=== PATIENT | female | born 1960 | race Caucasian/White ===

== ENCOUNTER 2020-05-11 10:45 | Inpatient (IN) | payer OTHER ==
[~2020-05-11] VITALS: Ht 165.1 cm; Wt 95.3 kg
[2020-05-29] MEDS ORDERED: OMEPRAZOLE 20 M20 M1 PO (11:12)
[2020-05-29] MEDS ORDERED: BUPROPION XL300 MG PO (11:13)
[2020-05-29] MEDS ORDERED: OXYBUTYNIN CHLO15 MG PO (11:13)
[2020-05-29] MEDS ORDERED: LEVO-T75 MCG PO (11:14)
[2020-05-29] MEDS ORDERED: TIROSINT50 MCG PO (11:14)
[2020-05-29] MEDS ORDERED: ASA81BEC PO (11:16)
[2020-05-29] MEDS ORDERED: DESVENLAFAXINE100 M3 PO (11:16)
[2020-05-29] MEDS ORDERED: CRANBERRY500 M3 PO (11:17)
[2020-05-29] MEDS ORDERED: TESSALON PERLE100 M1 PO (11:17)
[2020-05-29] MEDS ORDERED: THERATRUM COMP1 EAC2 PO (11:18)
[2020-05-29] MEDS ORDERED: VITAMIN C1000 MG PO (11:18)
[2020-05-29] MEDS ORDERED: CYCLOBENZAPRINE5 MG PO (11:19)
[2020-05-29] MEDS ORDERED: TEMAZEPAM30 MG PO (11:19)
[2020-05-29] MEDS ORDERED: FOSAMAX 70 MG T70 MG PO (11:19)
[2020-05-29] MEDS ORDERED: MELOXICAM15 MG PO (11:20)
[2020-05-29] MEDS ORDERED: MAXALT10 MG PO (11:21)
[2020-05-29] MEDS ORDERED: TYLENOL EXTRA500 MG PO (11:21)
[2020-05-29] MEDS ORDERED: TRAMADOL 50 MG50 MG PO (11:21)
[2020-05-29] MEDS ORDERED: VITAMIN D350 MCG PO (11:21)
[2020-05-29] MEDS ORDERED: VITAMIN B-122000 MC1 PO (11:22)
[2020-05-29 11:56] LABS: ABSOLUTE NEUTROPHILS 2.5 thou/uL (1.4-8.2); BASOPHILS 0.8 % (0.0-2.0); EOSINOPHILS 5.2 % (0.0-3.0); HEMATOCRIT 32.1 % (37.0-47.0); HEMOGLOBIN 10.8 gm/dL (12.0-15.0); LYMPHOCYTES 30.2 % (24.0-44.0); MCH 29.2 pg (26.0-34.0); MCHC 33.6 g/dL (28.0-37.0); MCV 86.9 fL (80.0-100.0); PLATELET COUNT 331 thou/uL (150-400); POLYS 51.8 % (36.0-66.0); RDW 15.7 % (10.5-14.5); WBC 4.7 thou/uL (4.0-11.0)
[2020-05-29 12:04] LABS: URINE BILIRUBIN NEGATIVE (Negative); URINE BLOOD NEGATIVE (Negative); URINE CLARITY CLEAR; URINE COLOR YELLOW; URINE GLUCOSE-RANDOM* NEGATIVE (Negative); URINE KETONES NEGATIVE (Negative); URINE NITRITE-REFLEX NEGATIVE (Negative); URINE PROTEIN (DIPSTICK) NEGATIVE (Negative); URINE SPECIFIC GRAVITY 1.025 (1.005-1.035); URINE UROBILINOGEN 0.2 E.U./dl (0.2-1.0)
[2020-05-29 12:06] LABS: URINE LEUKOCYTES-REFLEX 1+ (Negative)
[2020-05-29 12:08] LABS: APTT 23.5 Seconds (24.5-32.8); PROTIME 9.7 Seconds (9.3-11.4)
[2020-05-29 12:09] LABS: ALBUMIN 3.6 g/dL (3.4-5.0); CALCIUM 8.7 mg/dL (8.5-10.1); CREATININE 0.8 mg/dL (0.6-1.0); POTASSIUM 4.5 mmol/L (3.5-5.1); TOTAL BILIRUBIN 0.4 mg/dL (0.2-1.0); TOTAL PROTEIN 6.4 g/dL (6.4-8.2)
[2020-05-29 12:29] LABS: CASTS None Seen /LPF (None Seen); SQUAMOUS >10 Many /LPF (0-3)
[2020-05-29 12:30] LABS: BACTERIA-REFLEX >30 Many /HPF (None Seen); CRYSTALS None Seen /LPF (None Seen); URINE WBC-REFLEX 6-15 Few /HPF (0-5)
--- NOTE | 2020-05-29 12:40 | EKG ---
[facility] [place] [address] ELECTROCARDIOGRAM REPORT Name: BERTRAND LEVY Room #: PRE IN ..#: [id number] Admission: Attend Phys: Deshaun Zuleta MD Discharge: Date of : 56 Report #: [id number] THIS REPORT FOR: cc: WILSON MALLOY Physician not on staff Braulio Hurtado MD ~ THIS REPORT FOR: //name// [facility] Test Date: 2020-05-29 Test Time: 11:46:21 Pat Name: BERTRAND LEVY Department: Room: Gender: F Cone Classifier Tender: Solomon IVORY : 1960 Requested By: Deshaun Zuleta Order Number: [id number] MD: Braulio Hurtado Measurements Intervals [place] Rate: 81 P: 56 DC: 156 QRS: 0 QRSD: 93 T: 19 QT: 388 QTc: 451 Interpretive Statements Sinus rhythm No previous ECG available for comparison Electronically Signed On 05-29-2020 12:39:47 [employer] by Braulio Hurtado [email or web address] <ELECTRONICALLY SIGNED> By: Braulio Hurtado MD 05/29/20 1239 D: 11/1145 1146 Braulio Hurtado MD /UZMA
[2020-06-01 06:50] VITALS: BP 150/85
[2020-06-01 16:10] VITALS: BP 124/74
[2020-06-01 16:44] VITALS: BP 120/75
[2020-06-01 17:52] VITALS: BP 129/74
--- NOTE | 2020-06-01 18:18 | NUR ---
PATIENT ADMITTED FROM OR WITH LUMBAR DECOMPRESSION WITH L4-L5 FUSION. PATIENT HAS AQUACEL DRESSING WITH 4X4 MEDIPORE TAPE IN PLACE WITH HEMOVAC, KNEE HIGH ASHLEY HOSE, SCD'S IN PLACE. PATIENT IS ON BEDREST DUE TO LUMBAR FUSION. REMANUFACTURING TECHNICIAN PUMP IN PLACE DILAUDID. C/O ITCHING. PATIENT DENIES NAUSEA, WANTS REGULAR DIET ORDERED FOR DINNER. PATIENT ALERT AND ORIENTED X 4, PATIENT UNSURE OF [place]. VISITOR AT THIS TIME. CAP MONITOR IN PLACE. O2 AT 2 LITERS/NC. ADMISSION COMPLETED, REPORT GIVEN TO SOLOMON/RN.
[2020-06-01 19:34] VITALS: BP 112/72
[2020-06-02 03:34] VITALS: BP 130/72
[2020-06-02 03:41] LABS: HEMATOCRIT 31.1 % (37.0-47.0); HEMOGLOBIN 10.3 gm/dL (12.0-15.0); MCH 29.1 pg (26.0-34.0); MCHC 33.1 g/dL (28.0-37.0); MCV 87.8 fL (80.0-100.0); PLATELET COUNT 331 thou/uL (150-400); RBC 3.54 mil/uL (4.20-5.00); RDW 15.8 % (10.5-14.5); WBC 9.7 thou/uL (4.0-11.0)
[2020-06-02 04:06] LABS: CALCIUM 8.4 mg/dL (8.5-10.1); CREATININE 0.9 mg/dL (0.6-1.0); MAGNESIUM 1.9 mg/dL (1.8-2.4); POTASSIUM 5.2 mmol/L (3.5-5.1)
[2020-06-02 04:41] LABS: FOLIC ACID 21.1 ng/mL (8.6-58.9)
--- NOTE | 2020-06-02 04:44 | NUR ---
ASSESSMENT COMPLETED.PT HAS A SNELL WITH GOOD U/O. BEEN ON THE DIULADID TEACHER VOCATIONAL TRAINING, RATING PAIN IN THE RANGE OF 5-7. CAPNO IN PLACE. PT ALSO C/O ITCHING, GIVEN BENADRYL AND ATARAX GIVEN WITH RELIEF.AFEBRILE. HEMOVAC INTACT. WILL CONTINUE WITH POC TILL EOS.
[2020-06-02 08:05] VITALS: BP 101/69
--- NOTE | 2020-06-02 08:20 | NUR ---
CM RECEIVED A CALL FROM PTS WORK COMP MAJOR GIFTS DIRECTOR HANRUSTY BORJAEWS [phone] WHO REPORTS SHE CAN HELP ASSIST WITH ANY NEEDS PT MAY HAVE. HER FAX FOR CLINICAL IS [phone]. CM NOTIFIED UR RN OF THIS INFORMATION WELL. DANIAL WILL MEET WITH PATIENT THIS AM.
[2020-06-02 09:12] LABS: ABSOLUTE NEUTROPHILS 7.6 thou/uL (1.4-8.2); PLATELET ESTIMATE NORMAL
[2020-06-02] MEDS ORDERED: COLACE 100 MG100 MG PO (10:49)
[2020-06-02] MEDS ORDERED: MIRALAX17 GM PO (10:49)
[2020-06-02] MEDS ORDERED: ROBAXIN 750 MG750 MG PO (10:49)
[2020-06-02] MEDS ORDERED: NORCO 5-325 TA1 EAC2 PO (10:49)
[2020-06-02] MEDS ORDERED: BENADRYL ALLERG25 MG PO (10:49)
[2020-06-02] MEDS ORDERED: CIPRO500 MG PO (10:49)
--- NOTE | 2020-06-02 10:51 | NUR ---
PT CARE ASSUMED AT 0700. A&Ox4. AWAITING PT/OT EVAL TO DETERMINE DISCHARGE. IV PATENT WITH NO REDNESS OR EDEMA, SALINE LOCKED. AQUACELL DRESSING DRY AND INTACH. SNELL REMOVED AFTER PT EVALUATION. HEMOVAC IN PLACE. PT HAD A MILD PANIC ATTACK WHILE WAS IN THE ROOM WITH PT. VITALS ALL STABLE. UP WITH PT TO THE RECLINER. TEDS/SCD'S IN PLACE. IS ENCOURAGED. PT COMPLAINING OF THROAT BEING SOAR. AWARE. NO NEW ORDERS. FALL PROTOCOL IN PLACE. PT COMPLAINING OF GENERALIZED ITCHING. SWITCHED PAIN MEDICATION FROM OXYCODONE TO HYDROCODONE. WILL CONTINUE TO MONITOR.
--- NOTE | 2020-06-02 14:42 | NUR ---
ON-GOING ASSESSMENT: CM REVIEWED CHART AND SPOKE WITH ATTENDING. PT REPORTS SHE IS STILL HAVING ALOT OF PAIN. PT LIVES IN A HOME ALONE. PT DID WELL WITH PHYSICAL THERAPY AND THEY ARE RECOMMENDING HOME VS HOME WITH HH. CM DISCUSSED WITH PATIENT BUT SHE REPORTS SHE IS NOT WANTING HOME HEALTH AT DISCHARGE AND REPORTS SHE WANTS TO DO OUTPATIENT THERAPY. PT STATES SHE IS NOT AGREEABLE FOR HH AND STATES SHE HAS FRIENDS THAT WILL BE ABLE TO TAKE HER TO OUTPATIENT EVENTUALLY. CM HAS BEEN UPDATING PTS BRIDGE IRONWORKER HELPER HAN THROUGH WORK COMP [phone] ON PLAN. OT ALSO SPOKE WITH CM WHO REPORTS THEY DO NOT FEEL PT IS STABLE FOR DISCHARGE THIS DAY AND ARE RECOMMENDING SOME EQUIPMENT AT DISCHARGE. PTS BRIDGE IRONWORKER HELPER HAN THROUGH WORK COMP STATES SHE CAN HELP COORDINATE THAT AND JUST NEEDS ORDER. CM FAXED HER THE ORDER TO OUTPATIENT PT,RIGID SOCK AIDE, LONG HANDLED SPONGE, SHOWER CHAIR AND SHE REPORTS SHE WILL WORK ON GETTING IT APPROVED AND UPDATE PT. PT HAS [employer]. PT REPORTS HER MOTHER IS CURRENTLY STAYING AT HER HOME AND SHE HAS FRIENDS THAT CAN ASSIST HER. PLANS ARE FOR PATIENT TO DISCHARGE HOME ONCE MEDICALLY STABLE.
[2020-06-02 16:09] VITALS: BP 110/62
[2020-06-02 20:15] VITALS: BP 128/73
[2020-06-03 02:40] VITALS: BP 131/76
--- NOTE | 2020-06-03 03:23 | NUR ---
ASSUMED PT CARE AT SHIFT CHANGE. PT IS A&OX4. PT IS ON ROOM AIR. PT TAKES MEDS WHOLE. PT IS A SBA TO THE RR. PT COMPLAINS OF PAIN. WHEN ADMINISTERING HYDROCODONE PT COMPLAINS OF ITCHING. BENADRYL WAS ADMINISTERED. PT CALLS OUT APPR. FALL BUNDLE IN PLACE. PT HAS AQUACELL DRESSING ON HER BACK - C/D/I. HEMOVAC EMPTIED AT 2315. 75 CC'S OF DRAINAIGE. PT IS A SBA WITH A WALKER. WILL CONTINUE TO MONITOR.
[2020-06-03 05:44] LABS: HEMATOCRIT 30.1 % (37.0-47.0); HEMOGLOBIN 9.8 gm/dL (12.0-15.0); MCH 28.8 pg (26.0-34.0); MCHC 32.6 g/dL (28.0-37.0); MCV 88.4 fL (80.0-100.0); PLATELET COUNT 289 thou/uL (150-400); WBC 8.9 thou/uL (4.0-11.0)
[2020-06-03 06:07] LABS: CALCIUM 8.5 mg/dL (8.5-10.1); CREATININE 0.9 mg/dL (0.6-1.0); POTASSIUM 4.7 mmol/L (3.5-5.1)
[2020-06-03 07:57] VITALS: BP 122/69
--- NOTE | 2020-06-03 10:01 | NUR ---
Assumed care of pt. at 0700. Pt. had a fever of 100.4 when vitals were taken. Reviewed previous vitals and noticed a fever had been present for the previous two vital sets as well. None of this was brought up in handoff report. Acetaminophen given. Temperature reassesed 35 minutes later and was still 100.1.
[2020-06-03 10:31] LABS: ABSOLUTE NEUTROPHILS 6.4 thou/uL (1.4-8.2)
[2020-06-03 11:28] LABS: URINE BILIRUBIN NEGATIVE (Negative); URINE BLOOD NEGATIVE (Negative); URINE CLARITY CLEAR; URINE COLOR YELLOW; URINE GLUCOSE-RANDOM* NEGATIVE (Negative); URINE KETONES NEGATIVE (Negative); URINE LEUKOCYTES-REFLEX NEGATIVE (Negative); URINE NITRITE-REFLEX NEGATIVE (Negative); URINE PROTEIN (DIPSTICK) NEGATIVE (Negative); URINE SPECIFIC GRAVITY <= 1.005 (1.005-1.035); URINE UROBILINOGEN 0.2 E.U./dl (0.2-1.0)
[2020-06-03 15:57] VITALS: BP 124/69
[2020-06-03 19:54] VITALS: BP 125/57
--- NOTE | 2020-06-04 00:48 | NUR ---
ASSUMED PT CARE AT 1915. PT IS A&OX4. PT HAS IV THAT IS PATENT IN HER LEFT FOREARM. PT GETS UP WITH THE WALKER STANDBY ASSIST TO THE RESTROOM. PT RUNNING A TEMP OF 99.3. I RE CHECKED AND HER TEMP WAS 99.5. I ADMINISTERED TYLENOL. WILL CONTINUE TO MONITOR. PT COMPLAINS OF PAIN IN HER MID LOWER BACK. PT COMPLAINS OF ITCHING WHEN SHE TAKES HER PAIN MEDICATION SO I ADMINISTER HYDROXYZINE WITH HER PAIN MEDICATION. FALL PRECAUTIONS IN PLACE. HOURLY ROUNDS.
--- NOTE | 2020-06-04 03:57 | NUR ---
THE RN OVERSEEING PATIENTS CARE, I AGREE WITH THE ASSESSMENT AND NOTES BY THE ASSISTANT INVENTORY MANAGER ON THIS PATIENT.
[2020-06-04 05:24] LABS: HEMATOCRIT 32.7 % (37.0-47.0); HEMOGLOBIN 10.7 gm/dL (12.0-15.0); MCHC 32.7 g/dL (28.0-37.0); MCV 88.7 fL (80.0-100.0); PLATELET COUNT 321 thou/uL (150-400); RBC 3.68 mil/uL (4.20-5.00); RDW 15.8 % (10.5-14.5); WBC 8.7 thou/uL (4.0-11.0)
[2020-06-04 05:37] LABS: CALCIUM 8.9 mg/dL (8.5-10.1); CREATININE 0.8 mg/dL (0.6-1.0); POTASSIUM 3.9 mmol/L (3.5-5.1)
[2020-06-04 07:27] VITALS: BP 123/74
--- NOTE | 2020-06-04 10:54 | O ---
[facility] Shannan Monreal [facility] [place] [address] OPERATIVE REPORT Name: BERTRAND LEVY I Room #: 443-P ADM IN M.R.#: [id number] Admission: 06/01/20 Attend Phys: Brenden Castillo MD Discharge: Date of : 56 Report #: [id number] THIS REPORT FOR: cc: WILSON MALLOY Physician not on staff Deshaun Zuleta MD ~ CC: Brenden MALLOY Physician staff DATE OF SERVICE: 06/01/2020 PREPROCEDURAL DIAGNOSES: L3-L4 right lateral recess stenosis with radiculopathy, moderate to severe spinal stenosis L4-L5 with spondylolisthesis and instability, low back pain. POSTPROCEDURAL DIAGNOSES: L3-L4 right lateral recess stenosis with radiculopathy, moderate to severe spinal stenosis L4-L5 with spondylolisthesis and instability, low back pain. PROCEDURE: Posterior instrumentation L4-L5, posterolateral fusion L4-L5, TLIF L4-L5, insertion of interbody cage prosthesis L4-L5, bilateral laminectomy with partial facetectomy and neural foraminotomy of L4, bilateral laminectomy with partial facetectomy and neural foraminotomy L5, right laminectomy, partial facetectomy and neural foraminotomy L3-L4 for spinal stenosis far in excess that necessary for cage placement. Local bone graft harvest. Synthetic bone, allograft bone and fluoroscopy. SURGEON: Deshaun Zuleta MD. GAMEPLAY PROGRAMMER SURGEON: Reba Riojas. ANESTHESIA: General via endotracheal tube. INDICATIONS: The patient has had intractable back and bilateral leg pain and radicular symptoms. She has proved refractory to multimodality conservative management. She has requested we proceed with surgery, understanding the pathology to be an unstable spondylolisthesis at the L4-L5 level associated with at least moderate spinal stenosis and severe lateral recess stenosis. She also has neural foraminal and lateral recess stenosis at the L3-L4 level on the right. The patient understands the purpose of the surgery. She understands the risks of the surgery to be , DVT, pulmonary embolism, paraplegia, loss of bowel and bladder function, loss of sexual function, possibility of bleeding, bleeding requiring transfusion, transfusion attendant risks of AIDS and hepatitis infection, instability, the need for revision, prolonged hospital [address] [address] OPERATIVE REPORT Name: BERTRAND LEVY I Room #: 443-P [facility] IN .R.#: [id number] Admission: 06/01/20 Attend Phys: Brenden Castillo MD Discharge: Date of : 56 Report #: [id number], dural leak, spinal headache, infection and again she requested we proceed. DESCRIPTION OF PROCEDURE: The patient was brought to the operating room and administered general anesthesia via endotracheal tube. Lower extremities were treated with ASHLEY hose and intermittent compression stockings. The patient was positioned on the Giancarlo table in the prone position with all bony prominences padded appropriately. Care was taken to ensure the shoulders not abducted more than 90 degrees, the elbows flexed more than 90 degrees and there was no undue pressure on the cubital or carpal canals. The area of the anterior superior iliac spine was well padded to protect the lateral femoral cutaneous nerve. Hips and knees were well padded and there was no pressure on the dorsum of the feet. The patient's low back was defatted with alcohol, visualized under fluoroscopy and the pedicles of L3, L4, L5 and S1 were marked on the patient's back for surgical reference. The patient also received prophylactic antibiotic and a Loera catheter. After visualization under fluoroscopy, we sterilely prepped and draped, infiltrated the skin with 0.5% Marcaine, 1:200,000 epinephrine and sharp dissection was continued down through the skin, the subcutaneous tissues to the level of the deep fascia. The level of the deep fascia, the tips of spinous processes were subperiosteally exposed and the patient's spine was exposed from L3 to the inferior aspect of L5. We then were able to fix clamps to the tips of the spinous processes of L4 and L5 and we placed these perpendicular to the floor and brought in and obtained a lateral fluoroscopy, which gave us our relative pedicle directions. With that known, we were able to decorticate with a high speed drill at the base of the transverse process of L4 in line with the lateral facet, inserted a pedicle probe and drive it to a depth of 40 mm. Once it was withdrawn, we palpated the hole to ensure cortical integrity and then we were able to place bone wax and a metallic marker. We repeated this process bilaterally at L4 and L5. Once all markers were placed, we were able to bring in fluoroscopy and proved that our markers were in excellent position within the pedicles of L4 and L5 bilaterally. We then sequentially removed each marker, decorticated posterolaterally and packed the posterolateral gutter for posterolateral fusion with synthetic bone that had been reconstituted with the patient's own vertebral body, blood rich in stem cells retrieved during the pedicle hole process. This was placed in the lateral gutters from transverse process to transverse process. Then, the screws were inserted. We measured, cut and contoured the rods and reduced the spondylolisthesis. With the spondylolisthesis reduced and the locking caps locked, we were able to move to the opposite side and performed exactly the same procedure, removed the markers, tapped the hole, palpated to ensure cortical integrity, decorticated bone graft posterolaterally and then inserted the screws and then the rods and completed the reduction maneuver and locked the rods with the locking caps torqued to appropriate tightness then turned our attention to the decompression. After a final AP and lateral fluoroscopy showed all of our instrumentation to be well placed, the screws were of appropriate length and trajectory transfixing the L4 and L5 vertebrae. We then cleaned the interspaces with a heavy bowl curette. We maintained the L3-L4 facets, but sacrificed the [facility] [address] [place] [address] OPERATIVE REPORT Name: BERTRAND LEVY I Room #: 443-P [facility] IN ..#: [id number] Admission: 06/01/20 Attend Phys: Brenden Castillo MD Discharge: Date of : 56 Report #: [id number] facets at L4-L5. We then performed a right-sided laminectomy, partial facetectomy and neural foraminotomy of L3 to allow decompression of the L3 nerve root and the lateral recess at L3-L4. We performed a total laminectomy of L4 and L5 bilaterally for purposes of decompression. We did this by sacrificing the midline elements, which were then meticulously cleaned and morcellized and saved as local bone graft for the interbody fusion. We were able to place the high speed drill in the wound and able to thin the laminas of L4 and L5 to their anterior cortex. Then, the ligamentum flavum was removed from the undersurface with forward angle micro curette and then the laminas were removed with a 3 mm Kerrison. When we had a wide central decompression at L3-L4, we started cephalad on the right widening it with partial facetectomies and ligament resection to clear the lateral recesses. Then, we performed aggressive neural foraminal decompressions. On the left side, we did a total laminectomy of L4 and L5 to allow placement of our TLIF device. Once we had the decompression and the nerve roots localized and isolated and protected, we were able to make an annular window. We ran the disk space with 7, 8 and 9 mm patricia. We used variety of curettes to do a complete diskectomy to punctate bleeding bone of the endplates. We then used the bone graft from the spinous processes and lamina that had been meticulously cleaned, morcellized and saved, instilled them in a funnel and then tamped them into the anterior aspect of the interspace. We then took our TLIF device, which was expandable, placed it in the interspace at L4-L5 and under fluoroscopy, performed an opening maneuver until the disk space was opened indirectly decompressing the nerve roots and in addition to the direct decompression that we had performed. With it stabilized, we then went back to our screws, compressed slightly and locked our construct. With our construct locked, we were able to then drill out the facet on the right that had been maintained and packed it in a posterior fusion fashion with remaining bone graft that had been meticulously cleaned and morcellized and saved. The patient's facet is now fused, the interbody fused, the posterolateral aspects fused. I think we gave the patient the highest probability of obtaining fusion and the decompression complete at right L3-L4 and bilaterally at L4 and L5. With the nerve roots completely decompressed with neural foraminal decompressions bilaterally, we copiously irrigated with a liter of antibiotic-containing solution. We placed pledgets thrombin-soaked Gelfoam over the spinal canal. We placed a transverse connector. We placed a gram of vancomycin in the wound and we began closure over a deep drain with 0 Vicryl in [id number]-farax interrupted fashion, deep subQ with 0 Vicryl, superficial subcutaneous with 2-0 Vicryl and skin with subcuticular 3-0, dressed it with benzoin, Steri-Strips, Xeroform, sterile dressing, sponges and a bioclusive. The patient tolerated the procedure well. There were no technical misadventures. Final blood loss was about 150 mL and the patient was physiologically stable throughout. No specimen. <ELECTRONICALLY SIGNED> By: Deshaun Zuleta MD 06/04/20 1054 [id number] Deshaun Zuleta MD /nt
[2020-06-04 11:38] LABS: ABSOLUTE NEUTROPHILS 5.7 thou/uL (1.4-8.2)
[2020-06-04 11:39] LABS: ANISOCYTOSIS 1+
--- NOTE | 2020-06-04 11:50 | NUR ---
Assumed care of pt. at 0700. Pt. was calm and cooperative. Pt. spoke with Dr. Parrish who cleared her for discharge pending Dr. Alcantara's approval. Dr. Alcantara stated that she could be discharged after she had a bowel movement. Pt. was given a suppository and walked laps around the unit.
[2020-06-04 13:40] VITALS: BP 123/74
--- NOTE | 2020-06-05 11:37 | NUR ---
cm received a call from cristina [employer] work comp senior case manager requesting discharge paperwork be faxed to her at [phone]. cm faxed clinical.
== END 2020-06-04 15:57 | disposition home or self-care (01) | DRG 455 ==
LOC: PRE 10:45 → TBA 06-01 06:11 → PRE 06-01 10:58 → 4S 06-01 16:11 → PRE 06-01 16:22 → 4S 06-04 15:57
PROVIDERS: Internal Medicine; Nurse Practitioner; ATTEND Hospitalist
PROC: 01NB0ZZ Release Lumbar Nerve, Open Approach (ICD-10-PCS; principal; 2020-06-01)
PROC: 0SG1071 Fusion of 2 or more Lumbar Vertebral Joints with Autologous Tissue Substitute, Posterior Approach, Posterior Column, Open Approach (ICD-10-PCS; principal; 2020-06-01)
PROC: 0SG10AJ Fusion of 2 or more Lumbar Vertebral Joints with Interbody Fusion Device, Posterior Approach, Anterior Column, Open Approach (ICD-10-PCS; principal; 2020-06-01)
DX: M48.061 Spinal stenosis, lumbar region without neurogenic claudication (principal); M43.16 Spondylolisthesis, lumbar region; F41.9 Anxiety disorder, unspecified; F32.9 Major depressive disorder, single episode, unspecified; M54.16 Radiculopathy, lumbar region; D64.9 Anemia, unspecified; E03.9 Hypothyroidism, unspecified; K59.00 Constipation, unspecified; K21.9 Gastro-esophageal reflux disease without esophagitis; E66.9 Obesity, unspecified; Z96.653 Presence of artificial knee joint, bilateral; Z90.710 Acquired absence of both cervix and uterus; Z68.35 Body mass index [BMI] 35.0-35.9, adult; Z98.84 Bariatric surgery status; Z20.828 Contact with and (suspected) exposure to other viral communicable diseases
CPT/HCPCS: 10102; 50010; 50101; 50402; 50850; 51878; 56524; 56527; 56529; 58247; 58248; 58251; 58258; 5827; 58283; 58334; 62110; 62900; 70005

== ENCOUNTER → 2020-06-16 | Outpatient (CLI) | payer OTHER ==
[~2020-06-16] MED LIST: ASA81BEC PO; BENADRYL ALLERG25 MG PO; BUPROPION XL300 MG PO; CIPRO500 MG PO; COLACE 100 MG100 MG PO; CRANBERRY500 M3 PO; CYCLOBENZAPRINE5 MG PO; DESVENLAFAXINE100 M3 PO; FOSAMAX 70 MG T70 MG PO; LEVO-T75 MCG PO; MAXALT10 MG PO; MELOXICAM15 MG PO; MIRALAX17 GM PO; NORCO 5-325 TA1 EAC2 PO; OMEPRAZOLE 20 M20 M1 PO; OXYBUTYNIN CHLO15 MG PO; ROBAXIN 750 MG750 MG PO; TEMAZEPAM30 MG PO; TESSALON PERLE100 M1 PO; THERATRUM COMP1 EAC2 PO; TIROSINT50 MCG PO; TRAMADOL 50 MG50 MG PO; TYLENOL EXTRA500 MG PO; VITAMIN B-122000 MC1 PO; VITAMIN C1000 MG PO; VITAMIN D350 MCG PO
== END ==
LOC: RAD 08:57
DX: M48.061 Spinal stenosis, lumbar region without neurogenic claudication (principal); M43.26 Fusion of spine, lumbar region